=== PATIENT | female | born 2000 | race Caucasian/White ===

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

== ENCOUNTER 2020-04-11 01:42 | Emergency (ER) | payer SELFPAY ==
[2020-04-11 02:10] VITALS: BP 143/98; PULSE 112; RESP 16; TEMP 36.6; O2SAT 98; BMI 29.7
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
--- NOTE | 2020-04-11 03:02 | PC.NURSE ---
Pt found leaving ED- states she does not want CT and will see dentist tomorrow. Also spoke with . AMA form filled out
== END 2020-04-11 03:22 | disposition left against medical advice (07) ==
PROVIDERS: Emergency Provider Physician Assistant
DX: S09.93XA Unspecified injury of face, initial encounter (principal); Y04.2XXA Assault by strike against or bumped into by another person, initial encounter; Z53.21 Procedure and treatment not carried out due to patient leaving prior to being seen by health care provider
CPT/HCPCS: 12345; 99281; 99282

== ENCOUNTER 2024-01-15 05:16 | Emergency (ER) | payer SELFPAY ==
[2024-01-15 05:19] VITALS: BMI 32.3
[2024-01-15 05:21] VITALS: BP 166/104; PULSE 92; RESP 18; TEMP 36.6; O2SAT 97
--- NOTE | 2024-01-15 05:25 | W.ED.EAR ---
HPI - Ear Problem General: Chief complaint: Ear Stated complaint: left ear jaw pain Time Seen by Provider: 01/15/24 05:16 Source: patient Mode of arrival: ambulatory Limitations: no limitations History of Present Illness: 23-year-old female who has a history of dental caries states that over the last 2 weeks she has been having left-sided dental pain states pain sharp in nature radiates to her left ear she denies any trismus or difficulty swallowing she rates her pain a 7 out of 10. Associated symptoms: Denies fever(s), headache(s) or neck pain Review of Systems Const: Denies: fever(s), chills, body aches or change in appetite ENMT: Reports: dental pain; Denies: throat pain Card: Denies: chest pain Resp: Denies: dyspnea GI: Denies: abdominal pain, nausea, vomiting or diarrhea Musc: Denies: neck pain or back pain Skin/Breast: Denies: rash Neuro: Denies: headache(s) PFSH ED PFSH: Social History Smoking and tobacco/nicotine status: never used tobacco/nicotine Physical Exam Const: COMMON NORMALS: no acute distress, patient oriented x3 and healthy appearing HENMT: COMMON NORMALS: normocephalic and atraumatic HEAD & SCALP: normocephalic and atraumatic TYMPANIC MEMBRANE: TM normal on the left OTHER: Poor dentition tenderness on left lower molar no abscess or trismus Eye: COMMON NORMALS: conjunctivae normal CONJUNCTIVA: Yes conjunctivae normal Neck/C-Spine: COMMON NORMALS: full ROM and supple Chest: COMMONS NORMALS: normal inspection of the chest Resp: COMMON NORMALS: normal respiratory effort Extremity: COMMON NORMALS: normal to inspection and full ROM Neuro: COMMON NORMALS: patient oriented x3, moves all extremities and no focal motor deficits Psych: COMMON NORMALS: mental status grossly normal, Normal thought process present and cooperative THOUGHT PROCESS: Normal thought process present Skin: COMMON NORMALS: no rashes or lesions noted and no wounds GENERAL SKIN EXAM: no rashes or lesions noted Course Vital Signs: Vital signs: Vital Signs Temperature 98 F 01/15/24 05:21 Pulse Rate 92 01/15/24 05:21 Respiratory Rate 18 01/15/24 05:21 Blood Pressure 166/104 01/15/24 05:21 Pulse Oximetry 97 01/15/24 05:21 MDM - Ear Medical Decision Making Patient presents here with dental pain is likely causing her ear pain her exam is benign she is to follow-up with dentist we will start her on antibiotics along with Naprosyn she is follow-up with PCP return if worsening. Medical Records I reviewed the patient's medical records. No radiology studies performed this visit Discharge Plan Discharge Patient Disposition: Home Clinical Impression: Pain, dental Condition: Stable Prescriptions: New cephalexin 500 mg capsule 500 mg PO TID 7 Days Qty: 21 0RF Naprosyn 500 mg tablet 500 mg PO BID PRN (Reason: pain) Qty: 20 0RF No Action Robaxin-750 750 mg tablet 750 mg PO Q6H Qty: 30 0RF EC-Naprosyn 500 mg tablet,delayed release (DR/EC) 500 mg PO BID PRN (Reason: pain) Qty: 20 0RF Discharge Orders: Discharge ED (Routine); Ordered 01/15/24 Ordered By: Judith Dietz Discharge Diet: Advance as tolerated Discharge Activity: Resume usual activity Patient Instructions: Toothache (ED) Stand Alone Forms: Work/School Release Coding Level of Care Code ED Molded Grid And Parts Inspector for Samantha Rodríguez
[2024-01-15] MEDS: HYDROcodone-acetaminophen 5-325 mg Tablet 1 TAB PO (05:30)
== END 2024-01-15 05:32 | disposition home or self-care (01) ==
PROVIDERS: Emergency Provider Emergency Medicine
DX: K08.89 Other specified disorders of teeth and supporting structures (principal)
CPT/HCPCS: 99283

== ENCOUNTER 2024-03-19 13:29 | Emergency (ER) | payer SELFPAY ==
[2024-03-19 14:29] VITALS: BP 135/86; PULSE 83; RESP 16; TEMP 36.7; O2SAT 98; BMI 32.3
--- NOTE | 2024-03-19 14:50 | ED_ITS ---
HPI - Dental/Oral General: Chief complaint: Dental/Oral Stated complaint: Jaw pain Time Seen by Provider: 03/19/24 14:45 Source: patient Mode of arrival: ambulatory Limitations: no limitations History of Present Illness: 23-year-old female states she had histor y of very poor dentition states she was eating today and felt a pop in her left lower jaw has been having pain since then. States she is supposed to see a dentist next week states the pain is sharp and rates it a 7 out of 10 denies any fevers denies any difficulty swallowing Associated symptoms: Denies fever(s) Related Data Previous Rx's Medication Instructions Recorded methocarbamol 750 mg tablet 750 mg PO Q6H #30 tabs 08/29/19 (Robaxin-750) naproxen 500 mg tablet,delayed 500 mg PO BID PRN pain #20 tabs 08/29/19 release (EC-Naprosyn) naproxen 500 mg tablet (Naprosyn) 500 mg PO BID PRN pain #20 tabs 01/15/24 cephalexin 500 mg capsule 500 mg PO TID 7 days #21 caps 03/19/24 Allergies Allergy/AdvReac Type Severity Reaction Status Date / Time Penicillins Allergy ALGY-Anaphy Verified 03/19/24 14:33 laxis Review of Systems Const: Denies: fever(s), chills, body aches or change in appetite ENMT: Reports: dental pain; Denies: throat pain Card: Denies: chest pain Resp: Denies: dyspnea GI: Denies: abdominal pain, nausea, vomiting or diarrhea Musc: Denies: neck pain or back pain Skin/Breast: Denies: rash Neuro: Denies: headache(s) PFS ED PFSH: Social History Smoking and tobacco/nicotine status: never used tobacco/nicotine Physical Exam Const: COMMON NORMALS: no acute distress, patient oriented x3 and healthy appearing HENMT: COMMON NORMALS: normocephalic and atraumatic HEAD & SCALP: normocephalic and atraumatic OTHER: Very poor dentition with tenderness over left lower molar no abscess or trismus Neck/C-Spine: COMMON NORMALS: full ROM and supple Chest: COMMONS NORMALS: normal inspection of the chest Resp: COMMON NORMALS: normal respiratory effort Cardio: COMMON NORMALS: regular rate RATE: regular rate Extremity: COMMON NORMALS: normal to inspection and full ROM Neuro: COMMON NORMALS: patient oriented x3, moves all extremities and no focal motor deficits Psych: COMMON NORMALS: mental status grossly normal, Normal thought process present and cooperative THOUGHT PROCESS: Normal thought process present Skin: COMMON NORMALS: no rashes or lesions noted and no wounds GENERAL SKIN EXAM: no rashes or lesions noted Course Vital Signs: Vital signs: Vital Signs Temperature 98.1 F 03/19/24 14:29 Pulse Rate 83 03/19/24 14:29 Respiratory Rate 16 03/19/24 14:29 Blood Pressure 135/86 03/19/24 14:29 Pulse Oximetry 98 03/19/24 14:29 Oxygen Delivery Me thod Room Air 03/19/24 14:29 MDM - Dental/Oral Medical Decision Making Patient presents here with dental pain does have poor dentition no signs of abscess or trismus we will start antibiotic she is to follow-up with dentist return if worsening. No radiology studies performed this visit Discharge Plan Discharge Patient Disposition: Home Clinical Impression: Toothache, Dental caries Condition: Stable Prescriptions: New cephalexin 500 mg capsule 500 mg PO TID 7 Days Qty: 21 0RF No Action Robaxin-750 750 mg tablet 750 mg PO Q6H Qty: 30 0RF EC-Naprosyn 500 mg tablet,delayed release (DR/EC) 500 mg PO BID PRN (Reason: pain) Qty: 20 0RF Naprosyn 500 mg tablet 500 mg PO BID PRN (Reason: pain) Qty: 20 0RF Discharge Orders: Discharge ED (Routine); Ordered 03/19/24 Ordered By: Judith Dietz Discharge Diet: Advance as tolerated Discharge Activity: Resume usual activity Patient Instructions: Toothache (ED) Coding Level of Care Code ED Conservation Specialist for Samantha Rodríguez
[2024-03-19] MEDS: HYDROcodone-acetaminophen 5-325 mg Tablet 1 TAB PO (14:55)
[2024-03-19] MEDS: cephALEXin 500 mg Capsule PO (14:55)
[2024-03-19 15:08] VITALS: BP 131/87; PULSE 79; RESP 16; TEMP 36.7; O2SAT 99
== END 2024-03-19 15:07 | disposition home or self-care (01) ==
PROVIDERS: Emergency Provider Emergency Medicine
DX: K02.9 Dental caries, unspecified (principal)
CPT/HCPCS: 99283

== ENCOUNTER 2024-04-15 10:05 | Emergency (ER) | payer SELFPAY ==
[2024-04-15 10:22] VITALS: BP 152/92; PULSE 88; RESP 16; TEMP 36.8; O2SAT 97; BMI 31.3
--- NOTE | 2024-04-15 10:22 | W.ED.DENTAL ---
HPI - Dental/Oral General: Stated complaint: pain and swollen face Time Seen by Provider: 04/15/24 10:16 History of Present Illness: Patient presents to the ER with pain follow-up and swollen face. Patient has a dental caries/abscess on her left lower mandibular region. Patient has a appointment with a dentist in about a week she been taking Keflex 500 mg twice a day for about the last week. This time does not seem to help she took it about 3 weeks ago at 500 mg 3 times a day and it did seem to help. Patient is allergic to penicillin. Related Data Previous Rx's Medication Instructions Recorded methocarbamol 750 mg tablet 750 mg PO Q6H #30 tabs 08/29/19 (Robaxin-750) naproxen 500 mg tablet,delayed 500 mg PO BID PRN pain #20 tabs 08/29/19 release (EC-Naprosyn) naproxen 500 mg tablet (Naprosyn) 500 mg PO BID PRN pain #20 tabs 01/15/24 clindamycin HCl 300 mg capsule 300 mg PO TID 7 days #21 caps 04/15/24 Allergies Allergy/AdvReac Type Severity Reaction Status Date / Time Penicillins Allergy ALGY-Anaphy Verified 03/19/24 14:33 laxis Review of Systems General: Reports: 10 or more systems reviewed and unremarkable except in HPI and below PFSH ED PFSH: Social History Smoking and tobacco/nicotine status: never used tobacco/nicotine Physical Exam Const: COMMON NORMALS: no acute distress, average body habitus, patient oriented x3, no limitations, healthy appearing, alert and well nourished HENMT: COMMON NORMALS: normocephalic, atraumatic, hearing grossly normal bilaterally, external ears normal, Normal external nose present and moist oral mucous membranes; dentition not normal (Left mandibular lower dental caries/abscess) HEAD & SCALP: normocephalic and atraumatic NOSE: Normal external nose present EXTERNAL EAR: Yes external ears normal Neck/C-Spine: COMMON NORMALS: full ROM, no lymphadenopathy, supple, no meningeal signs, no JVD and Thyroid normal THYROID: Thyroid normal Chest: COMMONS NORMALS: normal inspection of the chest and normal palpation of entire chest wall Cardio: COMMON NORMALS: no JVD GI: COMMON NORMALS: Normal to inspection, nondistended, normoactive bowel sounds present, Soft to palpation, non-tender, No hepatosplenomegaly present and no masses PALPATION: Yes Soft to palpation and Yes No hepatosplenomegaly present Neuro: COMMON NORMALS: patient oriented x3 SENSORIUM/ORIENTATION: Yes alert MENINGEAL SIGNS: Yes no meningeal signs MDM - Dental/Oral Medical Decision Making Please stop the Keflex please start clindamycin please follow-up with your dentist. Differential Diagnosis Likely dental caries, toothache and dental abscess Medical Records I reviewed the patient's medical records. Lab Data I reviewed the patient's lab results. No radiology studies performed this visit Discharge Plan Discharge Patient Disposition: Home Clinical Impression: Tooth pain Condition: Stable Prescriptions: New clindamycin HCl 300 mg capsule 300 mg PO TID 7 Days Qty: 21 0RF No Action Robaxin-750 750 mg tablet 750 mg PO Q6H Qty: 30 0RF EC-Naprosyn 500 mg tablet,delayed release (DR/EC) 500 mg PO BID PRN (Reason: pain) Qty: 20 0RF Naprosyn 500 mg tablet 500 mg PO BID PRN (Reason: pain) Qty: 20 0RF Discharge Orders: Discharge ED (Routine); Ordered 04/15/24 Ordered By: Hermilo Goncalves Patient Instructions: Toothache (ED) Activity Restrictions/Additional Instructions: Please stop the Keflex you are currently taking, please start clindamycin, please follow-up with your dentist at the next scheduled appointment. Coding Level of Care Code ED General Assembler Installer for Samantha Rodríguez
[2024-04-15 10:33] VITALS: BP 152/92; PULSE 87; O2SAT 97; O2SAT 98
== END 2024-04-15 10:36 | disposition home or self-care (01) ==
PROVIDERS: Emergency Provider Emergency Medicine
DX: K04.7 Periapical abscess without sinus (principal); K02.9 Dental caries, unspecified
CPT/HCPCS: 99283

== ENCOUNTER 2024-05-25 01:01 | Emergency (ER) | payer SELFPAY ==
[2024-05-25 01:10] VITALS: BP 170/102; PULSE 97; RESP 18; TEMP 37.1; O2SAT 99; BMI 29.7
[2024-05-25 01:12] VITALS: BP 162/104; PULSE 100; RESP 16; O2SAT 97
--- NOTE | 2024-05-25 01:20 | W.ED.SKABFB ---
HPI - Skin/Abscess/Foreign Bdy General: Chief complaint: Skin/Abscess/Foreign Body Stated complaint: large spotty burning rash neck, arms, torso Time Seen by Provider: 05/25/24 01:13 History of Present Illness: Patient presents to the ER with complaints of a blotchy red rash that started earlier today and it itches very badly. She says started on her scalp is on her left side of her neck her right shoulder right AC space. Patient does not know anything that is changed or anything a may have caused it. Patient has never had a rash like this before. Patient does not want any shots. Related Data Previous Rx's Medication Instructions Recorded methocarbamol 750 mg tablet 750 mg PO Q6H #30 tabs 08/29/19 (Robaxin-750) naproxen 500 mg tablet,delayed 500 mg PO BID PRN pain #20 tabs 08/29/19 release (EC-Naprosyn) naproxen 500 mg tablet (Naprosyn) 500 mg PO BID PRN pain #20 tabs 01/15/24 prednisone 50 mg tablet 50 mg PO DAILY #5 tabs 05/25/24 Allergies Allergy/AdvReac Type Severity Reaction Status Date / Time Penicillins Allergy ALGY-Anaphy Verified 05/25/24 01:13 laxis [facility] ED PFSH: Social History Smoking and tobacco/nicotine status: never used tobacco/nicotine Female Reproductive History: Date of last menstrual period: 05/10/24 Physical Exam Const: COMMON NORMALS: no acute distress, average body habitus, patient oriented x3, no limitations, healthy appearing, alert and well nourished HENMT: COMMON NORMALS: normocephalic, atraumatic, hearing grossly normal bilaterally, external ears normal, Normal external nose present and moist oral mucous membranes HEAD & SCALP: normocephalic and atraumatic NOSE: Normal external nose present EXTERNAL EAR: Yes external ears normal Neck/C-Spine: COMMON NORMALS: no JVD Chest: COMMONS NORMALS: normal inspection of the chest and normal palpation of entire chest wall Resp: COMMON NORMALS: normal respiratory effort, No retractions, No use of accessory muscles and clear to auscultation bilaterally AUSCULTATION: clear to auscultation bilaterally Cardio: COMMON NORMALS: no JVD, regular rate, regular rhythm, S1 normal heart sound present, S2 normal heart sound present, No gallops present (Cardio), No clicks present (Cardio), No murmurs present (Cardio) and No rub (Cardio) RATE: regular rate RHYTHM: regular rhythm HEART SOUNDS: S1 normal heart sound present and S2 normal heart sound present GI: COMMON NORMALS: Normal to inspection, nondistended, normoactive bowel sounds present, Soft to palpation, non-tender, No hepatosplenomegaly present and no masses PALPATION: Yes Soft to palpation and Yes No hepatosplenomegaly present Neuro: COMMON NORMALS: patient oriented x3 SENSORIUM/ORIENTATION: Yes alert Skin: NARRATIVE SKIN EXAM: Red blotchy rash noted on scalp, left neck, right shoulder, right AC space Course Vital Signs: Vital signs: Vital Signs Temperature 98.7 F 05/25/24 01:10 Pulse Rate 100 05/25/24 01:12 Respiratory Rate 16 05/25/24 01:12 Blood Pressure 162/104 05/25/24 01:12 Pulse Oximetry 97 05/25/24 01:12 Oxygen Delivery Me thod Room Air 05/25/24 01:12 MDM - Skin/Abscess/Foreign Bdy Medicial Decision Making Patient is a red itchy blotchy rash, we will give her dose of prednisone here and discharged home with a dose of prednisone and have her follow-up with her PCP within the next 7 days. Medical Records I reviewed the patient's medical records. Lab Data I reviewed the patient's lab results. No radiology studies performed this visit Discharge Plan Discharge Patient Disposition: Home Clinical Impression: Rash Condition: Stable Prescriptions: New prednisone 50 mg tablet 50 mg PO DAILY Qty: 5 0RF No Action Robaxin-750 750 mg tablet 750 mg PO Q6H Qty: 30 0RF EC-Naprosyn 500 mg tablet,delayed release (DR/EC) 500 mg PO BID PRN (Reason: pain) Qty: 20 0RF Naprosyn 500 mg tablet 500 mg PO BID PRN (Reason: pain) Qty: 20 0RF Discharge Orders: Discharge ED (Routine); Ordered 05/25/24 Ordered By: Hermilo Goncalves Patient Instructions: Acute Rash (ED) Activity Restrictions/Additional Instructions: Prescriptions been sent to your pharmacy. Please pick it up in the morning and started as directed. Please follow-up with your PCP within the next 7 days for further evaluation treatment as needed. Coding Level of Care Code ED Baseball Hand Sewer for Samantha Rodríguez
[2024-05-25 01:27] VITALS: BP 162/104; PULSE 90; RESP 18; O2SAT 97
[2024-05-25] MEDS: predniSONE 20 mg Tablet 40 MG PO (01:32)
== END 2024-05-25 01:34 | disposition home or self-care (01) ==
PROVIDERS: Emergency Provider Emergency Medicine
DX: R21 Rash and other nonspecific skin eruption (principal)
CPT/HCPCS: 99283; J7512

== ENCOUNTER 2024-05-26 22:42 | Emergency (ER) | payer SELFPAY ==
[2024-05-26 22:47] VITALS: BP 140/89; PULSE 91; RESP 15; TEMP 36.6; O2SAT 99; BMI 29.7
--- NOTE | 2024-05-26 23:17 | ED_ITS ---
HPI - Skin/Abscess/Foreign Bdy General: Chief complaint: Skin/Abscess/Foreign Body Stated complaint: Rash no better Time Seen by Provider: 05/26/24 22:47 Source: patient Mode of arrival: ambulatory Limitations: no limitations History of Present Illness: Patient is a 23-year-old female presented emerged part for the second time in 2 days for rash. Was seen here earlier stating the rash was on her scalp in various parts of her body. Stating it was itchy. She was prescribed prednisone, states she has been taking this and has not been getting better. At this time there does not appear to be any rash present. Denies any new detergents, lotions, or other potential allergens. No shortness of breath or other symptoms at this time. MD complaint: rash Onset (ago): day(s) (3) Location: generalized Quality: pruritic Pain Consistency: constant Associated symptoms: Deny chills, fever(s), nausea or vomiting Treatments prior to arrival: corticosteroid Related Data Previous Rx's Medication Instructions Recorded methocarbamol 750 mg tablet 750 mg PO Q6H #30 tabs 08/29/19 (Robaxin-750) naproxen 500 mg tablet,delayed 500 mg PO BID PRN pain #20 tabs 08/29/19 release (EC-Naprosyn) naproxen 500 mg tablet (Naprosyn) 500 mg PO BID PRN pain #20 tabs 01/15/24 prednisone 50 mg tablet 50 mg PO DAILY #5 tabs 05/25/24 Allergies Allergy/AdvReac Type Severity Reaction Status Date / Time Penicillins Allergy ALGY-Anaphy Verified 05/26/24 22:47 laxis Review of Systems General: Reports: 10 or more systems reviewed and unremarkable except in HPI and below Const: Denies: fever(s) or chills Card: Denies: chest pain Resp: Denies: dyspnea GI: Denies: abdominal pain, nausea, vomiting or diarrhea Musc: Denies: extremity pain or joint pain Skin/Breast: Reports: rash and pruritus; Denies: skin pain, skin tenderness or new lesions Neuro: Denies: headache(s) PFS ED PFSH: Social History Smoking and tobacco/nicotine status: never used tobacco/nicotine Female Reproductive History: Date of last menstrual period: 05/12/24 Physical Exam Const: COMMON NORMALS: no acute distress, average body habitus, patient oriented x3, no limitations, healthy appearing, alert and well nourished HENMT: COMMON NORMALS: normocephalic and atraumatic HEAD & SCALP: normocephalic and atraumatic Neck/C-Spine: COMMON NORMALS: full ROM, no lymphadenopathy, supple and no meningeal signs Resp: COMMON NORMALS: normal respiratory effort, No use of accessory muscles and clear to auscultation bilaterally AUSCULTATION: clear to auscultation bilaterally Cardio: COMMON NORMALS: regular rate and regular rhythm RATE: regular rate RHYTHM: regular rhythm Extremity: COMMON NORMALS: full ROM and capillary refill normal Neuro: COMMON NORMALS: patient oriented x3 SENSORIUM/ORIENTATION: Yes alert MENINGEAL SIGNS: Yes no meningeal signs Skin: COMMON NORMALS: no rashes or lesions noted, no wounds and turgor normal NARRATIVE SKIN EXAM: There is no evidence of rash at this time. No burrowing lesions interdigitally. GENERAL SKIN EXAM: no rashes or lesions noted and turgor normal Course Vital Signs: Vital signs: Vital Signs Temperature 97.8 F 05/26/24 22:47 Pulse Rate 91 05/26/24 22:47 Respiratory Rate 15 05/26/24 22:47 Blood Pressure 140/89 05/26/24 22:47 Pulse Oximetry 99 05/26/24 22:47 Oxygen Delivery Me thod Room Air 05/26/24 22:47 MDM - Skin/Abscess/Foreign Bdy Medicial Decision Making At this time there does not appear to be a rash present, however patient this time requesting shot of Decadron and Benadryl. Encouraged her to establish with primary care for further evaluation. She is to continue taking her prednisone discussed case with Dr. Goncalves who saw the patient to the night. No radiology studies performed this visit Discharge Plan Discharge Patient Disposition: Home Clinical Impression: Rash Condition: Stable Prescriptions: No Action Robaxin-750 750 mg tablet 750 mg PO Q6H Qty: 30 0RF EC-Naprosyn 500 mg tablet,delayed release (DR/EC) 500 mg PO BID PRN (Reason: pain) Qty: 20 0RF Naprosyn 500 mg tablet 500 mg PO BID PRN (Reason: pain) Qty: 20 0RF prednisone 50 mg tablet 50 mg PO DAILY Qty: 5 0RF Discharge Orders: Discharge ED (Routine); Ordered 05/26/24 Ordered By: Nael Núñez Activity Restrictions/Additional Instructions: Establish with and follow-up with primary care as discussed. Continue taking prednisone. Return with any new or worsening Coding Level of Care Code ED Telephonic Nurse Case Manager for Samantha Rodríguez
[2024-05-26] MEDS: diphenhydrAMINE 50 mg/mL SDV 1mL IM (23:22)
[2024-05-26] MEDS: dexamethasone 10 mg/mL INJ IM (23:22)
== END 2024-05-26 23:42 | disposition home or self-care (01) ==
PROVIDERS: Emergency Provider Physician Assistant
DX: R21 Rash and other nonspecific skin eruption (principal)
CPT/HCPCS: 96372; 99284; J1100; J1200

== ENCOUNTER 2024-12-04 10:32 | Outpatient (CLI) | payer SELFPAY ==
--- NOTE | 2024-12-04 10:39 | XRR_ITS ---
PROCEDURE INFORMATION: Exam: XR Chest Exam date and time: 12/04/2024 11:04 AM Age: 24 years old Clinical indication: Dyspnea and wheezing; Wheezing for 2 weeks; Additional info: R06.00 - dyspnea, unspecified TECHNIQUE: Imaging protocol: Radiologic exam of the chest. Views: 2 views. COMPARISON: CR XR chest 2V* [id number] 08/29/2019 4:12 AM FINDINGS: Lungs: Unremarkable. No consolidation. Pleural spaces: Unremarkable. No pleural effusion. No pneumothorax. Heart/Mediastinum: Unremarkable. No cardiomegaly. Bones/joints: Unremarkable. XR/XR chest 2V* [id number] IMPRESSION: No acute findings. Stable chest compared with 08/29/2019.
== END 2024-12-04 10:33 | disposition home or self-care (01) ==
PROVIDERS: PCP Nurse Practitioner Family; Visit Provider Nurse Practitioner Family
DX: R06.00 Dyspnea, unspecified (principal)
CPT/HCPCS: 71046

== ENCOUNTER 2025-02-09 22:50 | Emergency (ER) | payer MEDICAID, SELFPAY ==
[2025-02-09 22:53] VITALS: BP 142/82; PULSE 82; RESP 16; TEMP 36.4; O2SAT 100; BMI 29.7
== END 2025-02-10 01:01 | disposition left against medical advice (07) ==
PROVIDERS: Emergency Provider Emergency Medicine; PCP Nurse Practitioner Family
DX: Z53.21 Procedure and treatment not carried out due to patient leaving prior to being seen by health care provider (principal)

== ENCOUNTER 2025-02-10 10:48 | Emergency (ER) | payer MEDICAID, SELFPAY ==
[2025-02-10 10:52] VITALS: BP 128/79; PULSE 83; RESP 16; TEMP 36.8; O2SAT 99; BMI 31.3
--- NOTE | 2025-02-10 13:16 | W.ED.HA ---
HPI - Headache General: Chief Complaint: Headache Stated Complaint: intermittent headache (7xday) Time Seen by Provider: 02/10/25 10:58 Source: patient Mode of arrival: ambulatory Limitations: no limitations History of Present Illness: Patient is a 24-year-old female that presents to the emergency department with intermittent headaches. She states these affect the right side of her head. She denies any fever or chills. She states stress seems to bring them on. She states they have been getting better but still present. She states today she left work because of the headache and came to the emergency department but states the headache has resolved. She is concerned about a possible aneurysm although she does not have any family history of aneurysms in the brain. She denies any numbness or tingling. She denies any vision changes. She does not report any chest pain or shortness of breath or abdominal pain. She presents to the emergency department for further evaluation and treatment. Associated symptoms: Deny chest pain, fever(s), nausea, rash or vomiting Related Data Previous Rx's ?Medication ?Instructions ?Recorded xzrokxwbpy-umqwvknvpsdrs-tfkrvrmd 1 cap PO Q4H PRN headache #12 caps 02/10/25 50 mg-300 mg-40 mg capsule (Fioricet) Allergies Allergy/AdvReac Type Severity Reaction Status Date / Time Penicillins Allergy ALGY-Anaphy Verified 02/09/25 22:56 laxis Review of Systems General: Reports: 10 or more systems reviewed and unremarkable except in HPI and below Const: Denies: fever(s) or chills Eyes: Denies: change in vision, blind spots, eye discharge or eye redness ENMT: Denies: throat pain or swelling of lips/tongue Card: Denies: chest pain Resp: Denies: dyspnea GI: Denies: abdominal pain, nausea or vomiting : Denies: difficulty voiding or dysuria Musc: Reports: neck pain (Patient does report some right-sided neck pain when she has the headache); Denies: back pain or extremity pain Skin/Breast: Denies: rash, pruritus or erythema Neuro: Reports: headache(s) (Intermittent for the past week. None now.); Denies: numbness in extremities, weakness in extremities, lack of coordination, difficulty walking or dizziness Psych: Denies: anxiety Endo: Denies: polyuria or polydipsia Bao/Lymph: Denies: petechiae All/Imm: Denies: urticaria, throat swelling or tongue swelling PFSH ED PFSH: Social History Smoking and tobacco/nicotine status: former use of tobacco/nicotine Female Reproductive History: Date of last menstrual period: 01/27/25 Physical Exam Const: COMMON NORMALS: no acute distress, patient oriented x3, no limitations and alert GENERAL APPEARANCE: cooperative ORIENTATION/CONSCIOUSNESS: Yes awake, Yes oriented to person, Yes oriented to place and Yes oriented to time HENMT: COMMON NORMALS: normocephalic, atraumatic, external ears normal, EAC's normal, TM's normal bilaterally and Normal external nose present HEAD & SCALP: normocephalic and atraumatic NOSE: Normal external nose present and Normal nares present EXTERNAL EAR: Yes external ears normal EXTERNAL AUDITORY CANAL: EAC's normal TYMPANIC MEMBRANE: TM's normal bilaterally MOUTH: Normal oral and palatal mucosa present Eye: COMMON NORMALS: Equal, round and reactive pupils present, EOMs intact bilaterally and conjunctivae normal VISUAL CORTÉS: No central vision loss CONJUNCTIVA: Yes conjunctivae normal SCLERA: sclerae normal PUPIL: Yes Equal, round and reactive pupils present Neck/C-Spine: COMMON NORMALS: full ROM, supple and no meningeal signs CERVICAL SPINE: Yes cervical ROM normal Resp: COMMON NORMALS: normal respiratory effort, No retractions and clear to auscultation bilaterally AUSCULTATION: clear to auscultation bilaterally, no crackles, no rales, no rhonchi and no wheezes Cardio: COMMON NORMALS: regular rate and regular rhythm RATE: regular rate RHYTHM: regular rhythm : COMMON NORMALS: Yes no CVA tenderness BLADDER/KIDNEY EXAM: Yes no CVA tenderness Back/Pelvis: COMMON NORMALS: no CVA tenderness and no thoracic nor lumbar tenderness Extremity: COMMON NORMALS: full ROM, no calf tenderness and no pedal edema Neuro: COMMON NORMALS: patient oriented x3, moves all extremities, no focal motor deficits and no sensory deficits noted SENSORIUM/ORIENTATION: Yes alert, Yes oriented to person, Yes oriented to place and Yes oriented to time MENINGEAL SIGNS: Yes no meningeal signs CRANIAL NERVES: Yes CN normal except as noted COORDINATION/BALANCE: bacjxq-ul-fhat test normal SPEECH: speech normal SENSORY EXAM: Yes extremities (No sensory deficits) MOTOR EXAM: 5/5 motor strength present throughout, Pronator motor function not present, no tremor noted and Normal motor muscle tone present throughout COORDINATION: eyxlwy-xr-pixg test normal Psych: COMMON NORMALS: mental status grossly normal, cooperative and speech normal ATTITUDE: Yes calm SPEECH: Yes normal speech Skin: COMMON NORMALS: no rashes or lesions noted, no wounds, no jaundice and no petechiae GENERAL SKIN EXAM: no rashes or lesions noted Course Vital Signs: Vital signs: Vital Signs Temperature 98.2 F 02/10/25 10:52 Pulse Rate 83 02/10/25 10:52 Respiratory Rate 16 02/10/25 10:52 Blood Pressure 128/79 02/10/25 10:52 Pulse Oximetry 99 02/10/25 10:52 Oxygen Delivery Me thod Room Air 02/10/25 10:52 MDM - Headache Medical Decision Making Patient was advised of the exam findings. Patient states she does not have a headache at this time. She states it is usually on the right side of her head and extends down into her right lateral neck. This could be a tension type headache or a migraine. Patient is concerned about possible aneurysm but does not have any personal or family history of brain aneurysm. I explained it may be better if she is able to follow-up with her primary care provider for an MRI if she continues to have headache pain as there is no radiation exposure with an MRI. The patient was advised to use the Fioricet as directed if needed for headache. I also recommended that she drink plenty of clear fluids to stay hydrated. The patient was advised to return to the emergency department with any worsening symptoms. The patient expressed understanding. Differential Diagnosis Likely migraine, tension headache, headache and meningitis No radiology studies performed this visit Critical Care Time Critical Care Time: Critical Care Time: No Discharge Plan Discharge Patient Disposition: Home Clinical Impression: Intermittent headache Condition: Stable Prescriptions: New aejgyocerw-rulbhkmaqnwnr-movs [Fioricet] 50-300-40 mg capsule 1 cap PO Q4H PRN (Reason: headache) Qty: 12 0RF Discharge Orders: Discharge ED (Routine); Ordered 02/10/25 Ordered By: Arjun Bocanegra Referrals: Elise Eagle FNP [Primary Care Provider, Family Practice] Discharge Diet: Usual diet Discharge Activity: Resume usual activity Patient Instructions: Opioid Safety, Pain Management, Patient Portal & Michael Instructions, Acute Headache (ED) Activity Restrictions/Additional Instructions: Take the medications as directed. Your prescription was sent electronically to the [facility] pharmacy in [place]. No driving if you have to take the pain medications. You may also use wiof-atl-wiyxwht ibuprofen to help with the headache. Rest, increase clear fluids to prevent dehydration. Follow-up with your doctor in 1 week for recheck. No work today or tomorrow. Return to the emergency department with any worsening symptoms such as worsening headache, vomiting or any other worsening symptoms. Stand Alone Forms: Work/School Release Print Language: Latvian Coding Level of Care Code ED Consumer Loan Manager for Samantha Rodríguez
[2025-02-10 13:43] VITALS: BP 126/83; PULSE 89; RESP 16; O2SAT 100
== END 2025-02-10 13:43 | disposition home or self-care (01) ==
PROVIDERS: Emergency Provider Physician Assistant; PCP Nurse Practitioner Family
DX: R51.9 Headache, unspecified (principal); Z87.891 Personal history of nicotine dependence
CPT/HCPCS: 99283